=== PATIENT | female | born 2000 | race Two or more races ===

== ENCOUNTER 2021-02-08 07:50 | Emergency (ER) | payer MEDICAID, OTHER ==
[~2021-02-08] VITALS: Ht 152.4 cm; Wt 59.9 kg
[2021-02-08 08:31] LABS: Urine Bacteria FEW /hpf (None Seen); Urine Blood 3+ /uL (Negative); Urine Hyaline Cast FEW /lpf (0 - 2); Urine Specific Gravity 1.001 (1.001-1.035); Urine WBC 13 /hpf (0 - 5)
[2021-02-08 09:30] VITALS: BP 108/67
[2021-02-08] MEDS ORDERED: PHENAZOPYRIDINE HCL 100 MG TAB PO ONE (09:30)
[2021-02-08] MEDS ORDERED: cefTRIAXone SOD 1,000 MG VL IM ONE (09:30)
[2021-02-08] MEDS ORDERED: LIDOCAINE 1% HCL (LOCAL ANESTH.) INJ 20ML MDV ONE (09:36)
[2021-02-08] MEDS ORDERED: LIDOCAINE 1% HCL (LOCAL ANESTH.) INJ 20ML MDV IJ ONE (09:45)
== END 2021-02-08 10:07 | disposition home or self-care (01) ==
LOC: ER 07:50
DX: O23.11 Infections of bladder in pregnancy, first trimester (principal); Z3A.01 Less than 8 weeks gestation of pregnancy
CPT/HCPCS: 81001; 81025; 96372; 99283; J0696; J2001